=== PATIENT | male | born 1990 | race African-American/Black ===

== ENCOUNTER 2018-11-29 13:09 | Emergency (ER) | payer BC ==
[2018-11-29 13:17] VITALS: BP 166/96; PULSE 78; RESP 16; TEMP 98.2
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
== END 2018-11-29 15:29 | disposition home or self-care (01) ==
LOC: EC 13:09
DX: M54.2 Cervicalgia (principal); M54.6 Pain in thoracic spine; F17.200 Nicotine dependence, unspecified, uncomplicated; V49.40XA Driver injured in collision with unspecified motor vehicles in traffic accident, initial encounter; Y92.89 Other specified places as the place of occurrence of the external cause
CPT/HCPCS: 72072; 72125; 70450; 99284; L0120